=== PATIENT | female | born 1995 | race Asian ===

== ENCOUNTER 2016-10-16 17:57 | Emergency (ER) | payer OTHER ==
[2016-10-16] MEDS ORDERED: NS 1,000 ML IV ONE (20:46)
[2016-10-16] MEDS ORDERED: ACETAMINOPHEN 500 MG TAB PO ONE (20:48)
[2016-10-16 21:10] VITALS: O2SAT 98
--- NOTE | 2016-10-16 21:25 | DX ---
PA and Lateral Chest History: Cough and illness for one month in a 21-year-old female; no previous studies are available f or comparison. Findings: The heart and mediastinal contours are normal. Pulmonary vascularity is normal. There is c entral peribronchial thickening. Linear opacity is seen at the left lung base, pneumonia versus atele ctasis. There is elevation of the right hemidiaphragm. Impression: Findings consistent with airways disease are noted with more focal left basilar opacity, pneumonia versus atelectasis.
[2016-10-16 21:47] LABS: % IMMATURE GRANULYOCYTES 0.4 % (0.0-1.1); ABSOLUTE IMMATURE GRANULOCYTES 0.06 10^3/uL (0.00-0.10); ADD DIFF? NO; ADD MORPH? NO; ADD SCAN? NO; ATYPICAL LYMPHOCYTE FLAG 30 (0-99); FRAGMENT RBC FLAG 0 (0-99); HEMATOCRIT 42.3 % (38.0-47.0); HEMOGLOBIN 13.9 g/dL (12.6-16.3); LEFT SHIFT FLG 0 (0-99); LIPEMIA HEMOLYSIS FLAG 80 (0-99); MEAN CELL HEMOGLOBIN 29.3 pg (27.9-34.1); MEAN CELL HEMOGLOBIN CONCENTR. 32.9 g/dL (32.4-36.7); MEAN CELL VOLUME 89.1 fL (81.5-99.8); PLATELET CLUMPS FLAG 0 (0-99); PLATELET COUNT 262 10^3/uL (150-400); RED BLOOD CELL COUNT 4.75 10^6/uL (4.18-5.33)
[2016-10-16 22:01] LABS: ANION GAP 9 mEq/L (8-16); CALCIUM 8.6 mg/dL (8.5-10.4); CARBON DIOXIDE 23 mEq/l (22-31); CHLORIDE 104 mEq/L (97-110); CREATININE 0.6 mg/dL (0.6-1.0); GLOMERULAR FILTRATION RATE > 60; GLUCOSE 114 mg/dL (70-100); POTASSIUM 4.5 mEq/L (3.5-5.2); SODIUM 136 mEq/L (134-144)
[2016-10-16] MEDS ORDERED: KETOROLAC 30 MG/1 ML SDV IVP ONE (22:04)
[2016-10-16] MEDS ORDERED: BENZONATATE 100 MG CAP PO ONE ×2 (22:05)
[2016-10-16] MEDS ORDERED: KETOROLAC 30 MG/1 ML SDV ONE (22:05)
[2016-10-16] MEDS: NS 1,000 ML IV ONE ×2 (22:10→22:21)
--- NOTE | 2016-10-16 22:12 | EDPHY ---
H & P Time Seen by Provider: 10/16/16 20:45 HPI/ROS: HPI Cough. 21-year-old female by private vehicle. She complains of a cough which she describes as Dry and ongoing sore throat for the last month. She was seen by her primary care physician at [facility] about a week ago. She was prescribed a antibiotic but she did not fill this prescription. She presents the emergency department complaining of continued cough and sore throat made worse by the cough. ROS: Constitutional: No fever, no chills. No weakness. Eyes: No discharge. No changes in vision. ENT: As above. No nasal congestion or rhinorrhea. Respiratory: As above. No shortness of breath. Cardiac: No chest pain, no palpitations. Gastrointestinal: No abdominal pain, no vomiting, no diarrhea. Genitourinary: No hematuria. No dysuria or increased frequency with urination. Musculoskeletal: No back pain. No neck pain. No myalgias or arthralgias. Skin: No rashes. Neurological: No headache. No focal weakness or altered sensation. Past medical history: PTSD, depression, multiple suicide attempts. Social history: Nonsmoker. No alcohol. Here by herself. Physical Exam: General Appearance: Alert, no distress. This patient is responding to questions appropriately and in full sentences. This patient appears well- hydrated and well-nourished. Eyes: Pupils equal and round no pallor or injection. No lid edema, erythema or injection. ENT, Mouth: Mucous membranes are moist. The pharyngeal tissues are unremarkable. No edema or swelling. No asymmetry suggestive of abscess. No erythema or exudates. Respiratory: There are no retractions, lungs are clear to auscultation with good air movement bilaterally. No wheezing. No rhonchi. No tachypnea. Intermittent dry cough. Cardiovascular: Regular rate and rhythm. No murmur. Neurological: Motor sensory function is grossly intact. Cranial nerves are normal. Gait is normal. Skin: Warm and dry, no rashes. Musculoskeletal: Neck is supple and nontender. Extremities are symmetrical. All joints range without pain or impingement. Psychiatric: No agitation. No depression. Database: Rapid strep-negative. Rapid flu-negative. EKG: Imaging: Chest x-ray PA and lateral; the cardiac mediastinal silhouette is unremarkable. No evidence of pneumothorax. Probable left lower lobe infiltrate. No other acute cardiopulmonary disease process noted. Interpreted by me. Procedures: Emergency department course: After my evaluation, an IV was placed. She was placed on a monitor. She was started on IV normal saline with 1-2 L to be given over the next 1-2 hours for dehydration. She was given a g of Tylenol. After review of her renal function she was given 30 mg of IV Toradol for sore throat and 200 mg of Tessalon Perle. 10:15 p.m., chest x-ray indicates left lower lobe infiltrate. I discussed antibiotic treatment with her. She was given 750 mg of oral Levaquin in the emergency department. She does feel comfortable going home. She does not have any significant comorbidities. Plan is to prescribe her Levaquin, 7 day course for treatment of pneumonia. Follow-up and return to emergency department precautions were reviewed with her thoroughly. All of her questions were answered. She was discharged from the emergency department in good condition. Differential Diagnosis: The differential diagnosis on this patient includes but is not limited to bronchitis, influenza, pneumonia, viral versus streptococcal pharyngitis. This represents a partial list of diagnoses considered. These considerations are based on history, physical exam, past history, reassessment and diagnostic testing. Smoking Status: Current every day smoker Constitutional: Initial Vital Signs Temperature (C) 37 C 10/16/16 18:36 Heart Rate 108 H 10/16/16 18:36 Respiratory Rate 18 10/16/16 18:36 Blood Pressure 104/80 10/16/16 18:36 O2 Sat (%) 97 10/16/16 18:36 O2 Delivery Mode Room Air Allergies/Adverse Reactions: Sulfa (Sulfonamide Antibiotics) Allergy (Intermediate, Verified 10/16/16 18:35) Hives Home Medications: Medication Instructions Recorded Benzonatate [Tessalon Pearles] 100 mg PO TID #12 cap 10/16/16 HYDROcodone/HOMATROPINE HYCODA 1 tsp PO Q4-6PRN PRN #120 ml 10/16/16 [Hycodan Syrup (RX)] levOFLOXACIN [levAQUIN (*)] 750 mg PO DAILY #7 tab 10/16/16 Medical Decision Making - Data Points Laboratory Results: Laboratory Results 10/16/16 21:36 10/16/16 21:36 10/16/16 10/16/16 10/16/16 Unknown 21:36 21:00 WBC 14.72 H 10^3/uL (3.80-9.50) RBC 4.75 10^6/uL (4.18-5.33) Hgb 13.9 g/dL (12.6-16.3) Hct 42.3 % (38.0-47.0) MCV 89.1 fL (81.5-99.8) MCH 29.3 pg (27.9-34.1) MCHC 32.9 g/dL (32.4-36.7) RDW 13.0 % (11.5-15.2) Plt Count 262 10^3/uL (150-400) MPV 9.0 fL (8.7-11.7) Neut % (Auto) 68.4 % (39.3-74.2) Lymph % (Auto) 20.9 % (15.0-45.0) [place] % (Auto) 7.7 % (4.5-13.0) Eos % (Auto) 2.1 % (0.6-7.6) Baso % (Auto) 0.5 % (0.3-1.7) Nucleat RBC Rel Count 0.0 % (0.0-0.2) Absolute Neuts (auto) 10.05 H 10^3/uL (1.70-6.50) Absolute Lymphs (auto) 3.08 H 10^3/uL (1.00-3.00) Absolute Monos (auto) 1.14 H 10^3/uL (0.30-0.80) Absolute Eos (auto) 0.31 10^3/uL (0.03-0.40) Absolute Basos (auto) 0.08 10^3/uL (0.02-0.10) Absolute Nucleated RBC 0.00 10^3/uL (0-0.01) Immature Gran % 0.4 % (0.0-1.1) Immature Gran # 0.06 10^3/uL (0.00-0.10) Sodium 136 mEq/L (134-144) Potassium 4.5 mEq/L (3.5-5.2) Chloride 104 mEq/L (97-110) Carbon Dioxide 23 mEq/l (22-31) Anion Gap 9 mEq/L (8-16) BUN 16 mg/dL (7-23) Creatinine 0.6 mg/dL (0.6-1.0) Estimated GFR > 60 Glucose 114 H mg/dL (70-100) Calcium 8.6 mg/dL (8.5-10.4) Influenza Typ A,B (DFA) NEGATIVE FOR FLU (NEGATIVE) Group A Strep Screen NEGATIVE (NEGATIVE) Group A Strep DNA Pending Medications Given: Discontinued Medications Acetaminophen (Tylenol) 1,000 mg PO EDNOW ONE Stop: 10/16/16 20:49 Last Admin: 10/16/16 21:08 Dose: 1,000 mg Sodium Chloride (Ns) 1,000 mls @ 0 mls/hr IV ONCE ONE PRN Reason: Wide Open Stop: 10/16/16 20:47 Last Admin: 10/16/16 21:08 Dose: 1,000 mls Departure - Departure Disposition: Home, Routine, Self-Care Clinical Impression: Pneumonia Condition: Good Instructions: Pneumonia (ED) Additional Instructions: Read and follow provided instructions. Take Hycodan cough syrup as directed only and only at night. Follow-up with your primary care physician in 1-2 days for re-evaluation without fail. Take antibiotic as prescribed through entire course of treatment. It is very important you do this.. Return to the emergency department for worsening cough, high fever, difficulty breathing or other serious concerns. Referrals: NONE *PRIMARY CARE P,. [Primary Care Provider] - As per Instructions Prescriptions: HYDROcodone/HOMATROPINE HYCODA [Hycodan Syrup (RX)] 1 tsp PO Q4-6PRN PRN #120 ml PRN Reason: Cough Benzonatate [Tessalon Pearles] 100 mg PO TID #12 cap levOFLOXACIN [levAQUIN (*)] 750 mg PO DAILY #7 tab
[2016-10-16 22:33] VITALS: BP 115/69; PULSE 97; RESP 16; TEMP 98.2
== END 2016-10-16 22:33 | disposition home or self-care (01) ==
DX: J18.9 Pneumonia, unspecified organism (principal); F17.200 Nicotine dependence, unspecified, uncomplicated
CPT/HCPCS: 96374; J1885

== ENCOUNTER 2017-06-08 14:00 | Inpatient (IN) | payer SELFPAY ==
[2017-06-08 14:22] LABS: COLOR YELLOW; LEUKOCYTE ESTERASE,URINE 3+ (NEGATIVE); NITRITE,URINE POSITIVE (NEGATIVE)
[2017-06-08 14:34] LABS: BACTERIA 3+ /hpf (NONE SEEN); MUCUS TRACE /lpf (NONE-1+); WBC,URINE 50-182 /hpf (0-3)
[2017-06-08] MEDS ORDERED: ONDANSETRON 4 MG/2 ML VIAL IVP ONE (14:56)
[2017-06-08] MEDS ORDERED: NS 1,000 ML IV ONE (14:56)
--- NOTE | 2017-06-08 15:06 | EDPHY ---
H & P Time Seen by Provider: 06/08/17 14:44 HPI/ROS: CHIEF COMPLAINT: Lower back pain HISTORY OF PRESENT ILLNESS: 22-year-old female presents to the emergency department with left greater than right low back pain. Pain began last evening. She states that she did not have any urinary symptoms of dysuria, urgency or frequency with urination. She has had urinary tract infections in the past. Last menstrual period was 2 weeks ago and she denies . She has pain in her left flank and lower abdomen. She has mild pain in the right flank as well. No history of kidney stones. No reported trauma. No fevers or chills. No chest pain or difficulty breathing. No vomiting. No diarrhea. REVIEW OF SYSTEMS: Constitutional: No fever, no chills. Eyes: No double or blurry vision. ENT: No sore throat. Respiratory: No cough, no shortness of breath. Cardiac: No chest pain. Gastrointestinal: No abdominal pain, vomiting or diarrhea. Genitourinary: No dysuria. Musculoskeletal: Low back pain as above. No neck pain. Skin: No rashes. Neurological: No headache. Past Medical/Surgical History: PTSD, depression, multiple suicide attempts Social History: Single and lives in [place] Smoking Status: Current every day smoker Physical Exam: General Appearance: Alert, moderate distress. Afebrile temperature 36.8 degrees. Eyes: Pupils equal and round. Extraocular motions are all intact. ENT: Mouth: Mucous membranes moist. Respiratory: No wheezing, rhonchi, or rales, lungs are clear to auscultation. Cardiovascular: Regular rate and rhythm. Gastrointestinal: Abdomen is soft. Diffusely tender to palpate in lower abdomen both the left and the right side. No rebound, guarding or masses noted. Positive CVA tenderness on the left and the right. Worse on the left than the right. Neurological: Alert and oriented x 3, cranial nerves II through XII grossly intact Skin: Warm and dry, no rashes. Musculoskeletal: Nontender to palpate along the cervical, thoracic or lumbar spine. Neck is supple. Extremities: Full range of motion and no peripheral edema. Psychiatric: Patient is oriented X 3, there is no agitation. Constitutional: Initial Vital Signs Temperature (C) 36.8 C 06/08/17 14:05 Heart Rate 94 06/08/17 14:05 Respiratory Rate 18 06/08/17 14:05 Blood Pressure 118/76 06/08/17 14:05 O2 Sat (%) 98 06/08/17 14:05 O2 Delivery Mode Room Air Allergies/Adverse Reactions: Sulfa (Sulfonamide Antibiotics) Allergy (Intermediate, Verified 06/08/17 14:04) Hives Home Medications: Medication Instructions Recorded NK [No Known Home Meds] 06/08/17 Medical Decision Making - Diagnostics Imaging Results: Imaging Impressions Abdomen/Pelvis CT 06/08/17 16:36 Impression: 1. Minimal asymmetric fullness of the left kidney and upper urinary tract may be due to pyelonephritis. No perinephric fluid collection or obstructing ureteral calculus. 2. Constipation and equivocal for mild adynamic ileus. 3. New benign subcutaneous cystic fluid collection in the region of the right inguinal canal/mons pubis may be a seroma. Recommend correlation with surgical history. 4. Well positioned intrauterine device. Findings discussed with emergency department physician automobile mechanic assistant, Anya Jones PA-C on June 08, 2017 at 1714 hours. Attention: This CT examination is specifically designed to evaluate patients who are clinically suspected of having acute obstructive uropathy. This examination does not use radiographic contrast, and as such, provides only a limited evaluation of the abdomen, pelvis, and retroperitoneum. If there is further clinical suspicion for pathological conditions other than obstructive uropathy, a complete CT evaluation of the abdomen and pelvis utilizing intravenous, oral, and rectal contrast should be considered. Imaging: Discussed imaging studies w/ call center support consultant Radiologist ED Course/Re-evaluation: 22-year-old female presents to the emergency department with flank pain and lower abdominal pain. Urinalysis reveals large amount of white blood cells, red blood cells and 3+ bacteria. Urine cultures pending. Clinically I think this patient has pyelonephritis. I doubt kidney stones. Patient has no history of kidney stones. She has bilateral flank pain although worse on the left than the right. An IV was established and she feels very nauseous. She was given Zofran IV. She was also given 1 g of ceftriaxone IV. Urine cultures pending. [place] [address] %period% creatinine is normal at 0.7. Patient was given 30 mg of IV Toradol as well as IV normal saline. She still continues to have severe especially left flank pain. I was concerned about possible kidney stone. I offered renal ultrasound versus possible CT scan to evaluate this. The patient did not feel that she was going to likely tolerate renal ultrasound because of the probe on her back. She elected CT scan. She is aware of the radiation exposure. CT imaging of the abdomen pelvis without contrast has been ordered and is pending. CT scan of the abdomen and pelvis reveals no evidence of kidney stone. There is minimal hydronephrosis as well as minimal hydroureter right at the renal pelvis. IUD in normal placement. Appendix appears normal. She does have a 2.5 cm fluid collection that looks to be like simple cystic fluid in her right groin. This was reported to me by Dr. Jack Medina. The patient continued to have ongoing pain. She was given 0.5 mg of Dilaudid IV. She has not been eating and drinking well. The patient will be admitted to the hospital to Dr. Elver Rivas for continued IV hydration and IV antibiotics. I did talk with the patient about the cystic fluid collection in her right groin. This is new from an MRI from August of 2014. The patient states that she has had intermittent swelling in her groin for last 1 year or more. She states that it is not typically around her menstrual cycle. She cannot determine if this is around when she ambulates. I recommended close follow-up with OBGYN as an outpatient to have this further evaluated and discussed. Case was discussed with Dr. Suarez, supervising physician, who did not directly evaluate the patient but agrees with treatment and plan. Differential Diagnosis: Including but not limited to urinary tract infection, pyelonephritis, kidney stone, ovarian cyst, ovarian torsion, ectopic , intrauterine - Data Points Laboratory Results: Laboratory Results 06/08/17 15:00 06/08/17 15:00 06/08/17 06/08/17 06/08/17 15:00 15:00 15:00 WBC 17.84 10^3/uL H 10^3/uL (3.80-9.50) RBC 4.98 10^6/uL 10^6/uL (4.18-5.33) Hgb 14.5 g/dL g/dL (12.6-16.3) Hct 43.0 % % (38.0-47.0) MCV 86.3 fL fL (81.5-99.8) MCH 29.1 pg pg (27.9-34.1) MCHC 33.7 g/dL g/dL (32.4-36.7) RDW 14.4 % % (11.5-15.2) Plt Count 231 10^3/uL 10^3/uL (150-400) MPV 9.0 fL fL (8.7-11.7) Neut % (Auto) 87.7 % H % (39.3-74.2) Lymph % (Auto) 6.3 % L % (15.0-45.0) [place] % (Auto) 5.3 % % (4.5-13.0) Eos % (Auto) 0.0 % L % (0.6-7.6) Baso % (Auto) 0.3 % % (0.3-1.7) Nucleat RBC Rel Count 0.0 % % (0.0-0.2) Absolute Neuts (auto) 15.63 10^3/uL H 10^3/uL (1.70-6.50) Absolute Lymphs (auto) 1.13 10^3/uL 10^3/uL (1.00-3.00) Absolute Monos (auto) 0.95 10^3/uL H 10^3/uL (0.30-0.80) Absolute Eos (auto) 0.00 10^3/uL L 10^3/uL (0.03-0.40) Absolute Basos (auto) 0.05 10^3/uL 10^3/uL (0.02-0.10) Absolute Nucleated RBC 0.00 10^3/uL 10^3/uL (0-0.01) Immature Gran % 0.4 % % (0.0-1.1) Immature Gran # 0.08 10^3/uL 10^3/uL (0.00-0.10) Sodium 138 mEq/L mEq/L (134-144) Potassium 4.3 mEq/L mEq/L (3.3-5.0) Chloride 102 mEq/L mEq/L (97-110) Carbon Dioxide 22 mEq/l mEq/l (22-31) Anion Gap 14 mEq/L mEq/L (8-16) BUN 12 mg/dL mg/dL (7-23) Creatinine 0.7 mg/dL mg/dL (0.6-1.0) Estimated GFR > 60 Glucose 98 mg/dL mg/dL (70-100) Calcium 9.2 mg/dL mg/dL (8.5-10.4) Beta HCG, Qual NEGATIVE Urine Color Urine Appearance Urine pH Ur Specific [place] Urine Protein Urine Ketones Urine Blood Urine Nitrate Urine Bilirubin Urine Urobilinogen Ur Leukocyte Esterase Urine RBC Urine WBC Ur Epithelial Cells Urine Bacteria Urine Mucus Urine Glucose 06/08/17 14:10 WBC RBC Hgb Hct MCV MCH MCHC RDW Plt Count MPV Neut % (Auto) Lymph % (Auto) [place] % (Auto) Eos % (Auto) Baso % (Auto) Nucleat RBC Rel Count Absolute Neuts (auto) Absolute Lymphs (auto) Absolute Monos (auto) Absolute Eos (auto) Absolute Basos (auto) Absolute Nucleated RBC Immature Gran % Immature Gran # Sodium Potassium Chloride Carbon Dioxide Anion Gap BUN Creatinine Estimated GFR Glucose Calcium Beta HCG, Qual Urine Color YELLOW Urine Appearance MODERATELY TURBID Urine pH 6.0 (5.0-7.5) Ur Specific [place] 1.012 (1.002-1.030) Urine Protein 1+ H (NEGATIVE) Urine Ketones NEGATIVE (NEGATIVE) Urine Blood 2+ H (NEGATIVE) Urine Nitrate POSITIVE H (NEGATIVE) Urine Bilirubin NEGATIVE (NEGATIVE) Urine Urobilinogen NEGATIVE EU EU (0.2-1.0) Ur Leukocyte Esterase 3+ H (NEGATIVE) Urine RBC 5-10 /hpf H /hpf (0-3) Urine WBC 50-182 /hpf H /hpf (0-3) Ur Epithelial Cells 1+ /lpf /lpf (NONE-1+) Urine Bacteria 3+ /hpf H /hpf (NONE SEEN) Urine Mucus TRACE /lpf /lpf (NONE-1+) Urine Glucose NEGATIVE (NEGATIVE) Medications Given: Discontinued Medications Hydromorphone HCl (Dilaudid) 0.5 mg IVP EDNOW ONE Stop: 06/08/17 16:36 Last Admin: 06/08/17 16:40 Dose: 0.5 mg Ceftriaxone Sodium/Dextrose (Rocephin 1 Gm (Premix)) 50 mls @ 100 mls/hr IV EDNOW ONE PRN Reason: Protocol Stop: 06/08/17 15:26 Last Admin: 06/08/17 15:05 Dose: 50 mls Sodium Chloride (Ns) 1,000 mls @ 0 mls/hr IV EDNOW ONE; Wide Open PRN Reason: Protocol Stop: 06/08/17 14:57 Last Admin: 06/08/17 15:06 Dose: 1,000 mls Ketorolac Tromethamine (Toradol) 30 mg IVP EDNOW ONE Stop: 06/08/17 15:29 Last Admin: 06/08/17 15:54 Dose: 30 mg Ondansetron HCl (Zofran) 4 mg IVP EDNOW ONE Stop: 06/08/17 14:57 Last Admin: 06/08/17 15:06 Dose: 4 mg Departure - Departure Disposition: [facility] In[facility] Acute Clinical Impression: Pyelonephritis Condition: Good
[2017-06-08 15:08] LABS: % IMMATURE GRANULYOCYTES 0.4 % (0.0-1.1); ABSOLUTE IMMATURE GRANULOCYTES 0.08 10^3/uL (0.00-0.10); ADD DIFF? NO; ADD MORPH? NO; ADD SCAN? NO; ATYPICAL LYMPHOCYTE FLAG 10 (0-99); FRAGMENT RBC FLAG 0 (0-99); HEMOGLOBIN 14.5 g/dL (12.6-16.3); LEFT SHIFT FLG 0 (0-99); LIPEMIA HEMOLYSIS FLAG 80 (0-99); MEAN CELL HEMOGLOBIN 29.1 pg (27.9-34.1); MEAN CELL HEMOGLOBIN CONCENTR. 33.7 g/dL (32.4-36.7); MEAN CELL VOLUME 86.3 fL (81.5-99.8); PLATELET CLUMPS FLAG 30 (0-99); PLATELET COUNT 231 10^3/uL (150-400); RED BLOOD CELL COUNT 4.98 10^6/uL (4.18-5.33); RED CELL DISTRIBUTION WIDTH 14.4 % (11.5-15.2)
[2017-06-08 15:25] LABS: ANION GAP 14 mEq/L (8-16); CALCIUM 9.2 mg/dL (8.5-10.4); CARBON DIOXIDE 22 mEq/l (22-31); CHLORIDE 102 mEq/L (97-110); CREATININE 0.7 mg/dL (0.6-1.0); GLOMERULAR FILTRATION RATE > 60; GLUCOSE 98 mg/dL (70-100); POTASSIUM 4.3 mEq/L (3.3-5.0); SODIUM 138 mEq/L (134-144)
[2017-06-08] MEDS ORDERED: KETOROLAC 30 MG/1 ML SDV IVP ONE (15:28)
[2017-06-08] MEDS ORDERED: HYDROmorphONE/DILAUDID 1 MG/ML INJ IVP ONE (16:35)
[2017-06-08] MEDS: HYDROmorphONE/DILAUDID 1 MG/ML INJ IVP PRN (19:53)
[2017-06-08] MEDS ORDERED: LORazepam 2 MG/ML INJ IVP PRN (20:06)
--- NOTE | 2017-06-08 21:16 | GHP ---
[f rep st] HISTORY AND PHYSICAL DATE OF ADMISSION: 06/08/2017 CHIEF COMPLAINT: Left side pain. HISTORY OF PRESENT ILLNESS: The patient is a 22-year-old woman with left greater than right bilatera l flank pain. Two nights ago, she started getting a sharp pain in the left lower back and also in th e front left abdomen. Then Friday, she had waves of pain in this area. Today, "my entire back" st arted having severe pain. Her stomach felt acidy. She started getting shaking chills today. She sl ept poorly last night. She has some vomiting last night. She has had some dry heaves today. She ca me to the emergency room because of pain today, where she was found to have a UTI. She has had no ur inary tract symptoms whatsoever, but does have this bilateral low back pain, worse on the left. She also continues to have some nausea. She has not vomited in the hospital. PAST MEDICAL HISTORY: Significant for mental health hospitalizations in the past, although not recen tly. She has a history of methamphetamine and benzodiazepine abuse, but has not had either of those medications for approximately 1 year now. She has no history of IV drug use. She has had occasional cocaine in the last several weeks. She denies marijuana use. She has "2-3" glasses of wine very ev ening. She smokes 4 cigarettes per day. She is not working at the present time. Living with a room mate. FAMILY HISTORY: Her mother when she was 16 years old. She was born in [place] and has moved ba ck and forth, but currently her father lives in [place], and she has been in [place] for the last few years. REVIEW OF SYSTEMS: CONSTITUTIONAL: Weight is stable. NEUROLOGIC: Denies headache. ENT: No head congestion. RESPIRATORY: Denies shortness of breath or cough. CARDIOVASCULAR: No chest pains or h eart palpitations. GI: Nausea, but no diarrhea or constipation. MUSCULOSKELETAL: Denies joint lavern ns, although she has felt achy all over all day today. PHYSICAL EXAMINATION: GENERAL: She is a well-developed [place] woman who is shivering in bed when I walk in. [place] through our conversation, she received a dose of Dilaudid 0.4 mg IV and not iceably calms down with less shaking, and she does not appear to be in any distress after the Dilaudi d. VITAL SIGNS: Blood pressure 118/76, heart rate 94, oxygen saturation 98% on room air, temperatur e 36.8. She has been here approximately 4 hours and has not had a fever since being here. EYES: Pu pils equal, round, and reactive to light. Conjunctivae are pink. THROAT, MOUTH AND OROPHARYNX: Ministerio ign. NECK: Supple, without adenopathy or thyromegaly. LUNGS: Clear. HEART: Regular, without mur mur. ABDOMEN: Soft and nontender, without masses. BACK: She has tenderness of the paraspinous mus cles in the upper lumbar area bilaterally, worse on the left. She also has CVA tenderness on the lef t, although this is somewhat hard to distinguish between CVA tenderness versus muscle tenderness. Be fore the Dilaudid, she had great difficulty lying flat on her back, but after the Dilaudid, she was a ble to lie supine for my exam. She has no inguinal tenderness. DATABASE: Her WBC is elevated at 17.8, hemoglobin 14, and platelets 231,000. Electrolytes are aisha l. Creatinine is 0.7. Abdominal CT scan without contrast shows minimal left kidney fullness and a b enign right inguinal fluid collection that is characterized as "benign" by the radiologist. IMPRESSION: 1. Pyelonephritis. Her elevated white count, shivering, and severe left greater than right flank pa in point to pyelonephritis. Although she is shivering, we have not actually documented a fever here. Nevertheless, this seems the most likely diagnosis. She received Rocephin in the ER. I will claritza nue that medication. Urine culture is pending. She has 50-180 WBCs in her urine. 2. Back pain. She clearly has a fairly significant element of back muscle tenderness causing some p ain. We discussed relaxation techniques to keep this calmed down. 3. Anxiety. She does have a history of anxiety and benzodiazepine abuse in the past, although has n ot used that med for a year now. If her anxiety is severe, I do not think it would be inappropriate to use a low dose of that med while in the hospital, but given her history, she should probably not g o home on any habituating medications. /[id number]/MODL
[2017-06-08] MEDS: D5W 1/2 NS W/ 20 KCl/L 1,000 ML IV SCH (21:33)
[2017-06-08] MEDS: ACETAMINOPHEN 325 MG TAB PO PRN (23:47)
[2017-06-09] MEDS: HYDROmorphONE/DILAUDID 1 MG/ML INJ IVP PRN ×5 (01:07→19:17)
[2017-06-09] MEDS: D5W 1/2 NS W/ 20 KCl/L 1,000 ML IV SCH ×2 (05:40→21:58)
[2017-06-09] MEDS: ACETAMINOPHEN 325 MG TAB PO PRN ×2 (09:14→20:16)
[2017-06-09] MEDS ORDERED: PROMETHAZINE HCL 25 MG/ML INJ IVP PRN (12:45)
--- NOTE | 2017-06-09 12:46 | HOSPPROG ---
Hospitalist Progress Note Assessment/Plan: DIAGNOSES: -Acute pyelonephritis, cultures pending, no sign of abscess -Acute sepsis with high fever tachycardia high white cell count -ongoing pain and nausea management issues -soft tissue density in the subcutaneous tissue right lower quadrant, question seroma, not likely related to her acute syndrome PLANS: -at this point she clearly will need ongoing inpatient IV antibiotics, IV fluids , antiemetics, and analgesics -Continue current empiric Rocephin awaiting cultures -I have increased her antiemetic doses and added some anti-inflammatory analgesic to her current narcotic medicine -Follow hemodynamics closely; at this moment there does not appear to be any need for any significant increase in resuscitation efforts are monitoring for sepsis but will have low index for doing so -recheck CBC and renal function SUBJECTIVE: ongoing severe bilateral flank pain Significant nausea, difficulty keeping fluids down OBJECTIVE Vitals reviewed: T-max 39 degrees associated with a high pulse at 112, blood pressures have been stable so far Exam: alert oriented Looks quite uncomfortable right now rising on bed with pain and nausea skin warm dry color ok resps not labored lungs clear BSs heart regular abd soft nondistended nontender, bowel sounds present limbs warm, no edema iv site ok laboratory data: Cultures pending I reviewed her images of CT scan of the abdomen and do not see evidence of obstruction/hydronephrosis or abscess Objective: Vital Signs Temp Pulse Resp BP Pulse Ox 36.7 C 79 16 110/59 L 96 06/09/17 12:06 06/09/17 12:06 06/09/17 12:06 06/09/17 12:06 06/09/17 12:06 06/08/17 06/09/17 06/10/17 06:59 06:59 06:59 Intake Total 802 Balance 802 - Time Spent With Patient Time Spent with Patient: greater than 35 minutes Time Spent with Patient: Greater than 35 minutes spent on this patients care, greater than 50% of time spent counseling, educating, and coordinating care regarding the above mentioned plan. ICD10 Worksheet Patient Problems: Problems Problem Status Onset Pyelonephritis Acute Acetaminophen overdose Acute Alcoholic intoxication Acute Depression Acute Polysubstance abuse Acute Post traumatic stress disorder (PTSD) Acute Substance abuse Acute
[2017-06-09] MEDS: ONDANSETRON 4 MG/2 ML VIAL IVP PRN (12:49)
[2017-06-09] MEDS ORDERED: LORazepam 1 MG TAB PO PRN (15:55)
[2017-06-09] MEDS: KETOROLAC 30 MG/1 ML SDV IVP SCH ×2 (16:30→21:57)
[2017-06-09] MEDS ORDERED: KETOROLAC 30 MG/1 ML SDV IVP SCH (18:00)
[2017-06-09] MEDS ORDERED: HYDROmorphONE/DILAUDID 1 MG/ML INJ IVP ONE (22:15)
[2017-06-10] MEDS: HYDROmorphONE/DILAUDID 2 MG/ML INJ IVP PRN ×6 (01:03→23:26)
[2017-06-10] MEDS: KETOROLAC 30 MG/1 ML SDV IVP SCH ×4 (04:38→21:51)
[2017-06-10] MEDS: D5W 1/2 NS W/ 20 KCl/L 1,000 ML IV SCH ×2 (08:28→19:57)
[2017-06-10] MEDS: ONDANSETRON 4 MG/2 ML VIAL IVP PRN ×3 (10:02→18:24)
--- NOTE | 2017-06-10 16:44 | ASMTCMCOM ---
CM Note CM Note Notes: Patient requesting to discharge today but she is still on IV antibiotics and IV fluids. She was advised that it would not be good for her to discharge yet otherwise she could end up right back in the hospital. Still uniknown how soon she might be ready to discharge. Case management will follow. Date Signed: 06/10/2017 04:43 PM Electronically Signed By:SHILPA Palmer
--- NOTE | 2017-06-10 18:17 | HOSPPROG ---
Hospitalist Progress Note Assessment/Plan: DIAGNOSES: -Acute pyelonephritis, cultures pending, no sign of abscess -Acute sepsis with high fever tachycardia high white cell count -ongoing pain and nausea management issues -soft tissue density in the subcutaneous tissue right lower quadrant, question seroma, not likely related to her acute syndrome PLANS: -at this point she clearly will need ongoing inpatient IV antibiotics, IV fluids , antiemetics, and analgesics -Continue current empiric Rocephin awaiting cultures -? home in 1-2 days depending on abx sensitivities and pain management SUBJECTIVE: pain is a bit better today but still needing a lot of narcotic analgesic nausea notably better OBJECTIVE Vitals reviewed:stable vitals so far today Exam: alert oriented Looks more comfortable today than yest skin warm dry color ok resps not labored lungs clear BSs heart regular abd soft nondistended nontender, bowel sounds present limbs warm, no edema iv site ok laboratory data: Cultures pending gram neg rods I reviewed her images of CT scan of the abdomen and do not see evidence of obstruction/hydronephrosis or abscess Objective: Vital Signs Temp Pulse Resp BP Pulse Ox 36.7 C 88 17 128/86 H 97 06/10/17 15:27 06/10/17 15:27 06/10/17 15:27 06/10/17 15:27 06/10/17 15:27 06/09/17 06/10/17 06/11/17 06:59 06:59 06:59 Intake Total 802 3270 Balance 802 3270 ICD10 Worksheet Patient Problems: Problems Problem Status Onset Pyelonephritis Acute Acetaminophen overdose Acute Alcoholic intoxication Acute Depression Acute Polysubstance abuse Acute Post traumatic stress disorder (PTSD) Acute Substance abuse Acute
[2017-06-10] MEDS: NICOTINE POLACRILEX 2 MG GUM B PRN (23:30)
[2017-06-11] MEDS: HYDROmorphONE/DILAUDID 2 MG/ML INJ IVP PRN ×4 (01:57→17:58)
[2017-06-11] MEDS: KETOROLAC 30 MG/1 ML SDV IVP SCH ×4 (04:36→21:22)
[2017-06-11] MEDS: D5W 1/2 NS W/ 20 KCl/L 1,000 ML IV SCH ×2 (04:38→15:06)
[2017-06-11] MEDS ORDERED: CEPACOL LOZENGE PO PRN (09:33)
--- NOTE | 2017-06-11 09:36 | HOSPPROG ---
Hospitalist Progress Note Assessment/Plan: DIAGNOSES: -Acute pyelonephritis, cultures pending, no sign of abscess -Acute sepsis with high fever tachycardia high white cell count, this is now resolved -ongoing pain and nausea management issues -soft tissue density in the subcutaneous tissue right lower quadrant, question seroma, not likely related to her acute syndrome PLANS: -at this point she clearly will need ongoing inpatient IV antibiotics, IV fluids , antiemetics, and analgesics -Continue current Rocephin but will be able to switch to po once nausea is resolve well enough -? home in 1-2 days depending on nausea and pain management -will add pyridium SUBJECTIVE: today still w quite a bit of nausea, needing antiemetic several times per day also no with some sore throat and new burning dysuria OBJECTIVE Vitals reviewed:stable vitals so far today without fever Exam: alert oriented Looks more comfortable today than yest skin warm dry color ok resps not labored lungs clear BSs heart regular abd soft nondistended nontender, bowel sounds present limbs warm, no edema iv site ok laboratory data: Cultures now with 2 different e coli, both ortiz sensitive I have reviewed her images of CT scan of the abdomen and do not see evidence of obstruction/hydronephrosis or abscess Objective: Vital Signs Temp Pulse Resp BP Pulse Ox 36.4 C 71 16 110/71 95 06/11/17 08:55 06/11/17 08:55 06/11/17 08:55 06/11/17 08:55 06/11/17 08:55 06/10/17 06/11/17 06/12/17 06:59 06:59 06:59 Intake Total 5217 5240 Output Total 4 Balance 3567 3019 ICD10 Worksheet Patient Problems: Problems Problem Status Onset Pyelonephritis Acute Acetaminophen overdose Acute Alcoholic intoxication Acute Depression Acute Polysubstance abuse Acute Post traumatic stress disorder (PTSD) Acute Substance abuse Acute
[2017-06-11] MEDS ORDERED: BISACODYL 10 MG SUPP PR PRN (09:58)
[2017-06-11] MEDS ORDERED: POLYETHYLENE GLYCOL 3350 17 GM PKT PO PRN (09:58)
[2017-06-11] MEDS: PHENAZOPYRIDINE HCL 200 MG TAB PO SCH ×3 (10:00→17:57)
[2017-06-11] MEDS: SENNOSIDES/DOCUSATE SODIUM TAB PO SCH ×2 (10:05→21:21)
[2017-06-11] MEDS: ONDANSETRON 4 MG/2 ML VIAL IVP PRN ×2 (10:08→14:40)
--- NOTE | 2017-06-11 16:36 | ASMTCMCOM ---
CM Note CM Note Notes: Pt still on IV ABX and hydration. May be ready for d/c in 1-2 days. Per [employer], pt missed her interview for [employer] [place] and Medicaid application and will follow up after she is discharged from [facility]. Date Signed: 06/11/2017 04:36 PM Electronically Signed By:SHILPA Brokos
[2017-06-11] MEDS: MAGNESIUM HYDROXIDE 30 ML UDCUP PO PRN (21:22)
[2017-06-11] MEDS: ACETAMINOPHEN 325 MG TAB PO PRN (22:18)
[2017-06-12] MEDS: D5W 1/2 NS W/ 20 KCl/L 1,000 ML IV SCH (01:10)
[2017-06-12] MEDS: KETOROLAC 30 MG/1 ML SDV IVP SCH ×4 (03:59→21:26)
[2017-06-12] MEDS: PHENAZOPYRIDINE HCL 200 MG TAB PO SCH ×3 (08:40→18:36)
[2017-06-12] MEDS: SENNOSIDES/DOCUSATE SODIUM TAB PO SCH ×2 (08:40→20:16)
[2017-06-12] MEDS: MAGNESIUM HYDROXIDE 30 ML UDCUP PO PRN (08:40)
[2017-06-12] MEDS: HYDROmorphONE/DILAUDID 2 MG/ML INJ IVP PRN ×2 (08:55)
--- NOTE | 2017-06-12 10:47 | HOSPPROG ---
Hospitalist Progress Note Assessment/Plan: DIAGNOSES: -Acute pyelonephritis, cultures pending, no sign of abscess -Acute sepsis with high fever tachycardia high white cell count, this is now resolved -ongoing pain and nausea management issues -soft tissue density in the subcutaneous tissue right lower quadrant, question seroma, not likely related to her acute syndrome PLANS: -at this point will attempt to change her medicines to oral and see how she tolerates that -Continue current Rocephin but will be able to switch to po once nausea is resolve well enough -home when nausea and pain management can easily be managed with oral medication and she is able to stay hydrated -will add pyridium SUBJECTIVE: Continue with with pain and nausea and using analgesics and antiemetics, although at this time she feels like she may be able to switch to oral of both She did go a longer time overnight without pain medicine last night No chills Still with dysuria OBJECTIVE Vitals reviewed:stable vitals so far today without fever Exam: alert oriented Looks more comfortable today than yest skin warm dry color ok resps not labored lungs clear BSs heart regular abd soft nondistended nontender, bowel sounds present limbs warm, no edema iv site ok laboratory data: Cultures now with 2 different e coli, both ortiz sensitive Objective: Vital Signs Temp Pulse Resp BP Pulse Ox 36.7 C 71 16 110/68 95 06/12/17 08:00 06/12/17 08:00 06/12/17 08:00 06/12/17 08:00 06/12/17 08:00 06/11/17 06/12/17 06/13/17 06:59 06:59 06:59 Intake Total 5224 3459 362 Output Total 4 Balance 4424 3459 250 ICD10 Worksheet Patient Problems: Problems Problem Status Onset Pyelonephritis Acute Acetaminophen overdose Acute Alcoholic intoxication Acute Depression Acute Polysubstance abuse Acute Post traumatic stress disorder (PTSD) Acute Substance abuse Acute
[2017-06-12] MEDS: oxyCODONE IR 5 MG TAB PO PRN ×2 (13:06→18:37)
[2017-06-12] MEDS: ACETAMINOPHEN 325 MG TAB PO PRN (14:45)
[2017-06-12] MEDS: ONDANSETRON 4 MG/2 ML VIAL IVP PRN ×2 (16:00→20:44)
[2017-06-12] MEDS: LACTULOSE 20 GM/30 ML UDCUP PO PRN (18:37)
[2017-06-12] MEDS: ONDANSETRON DISINTEGRATING 4 MG TAB PO PRN (20:16)
[2017-06-12] MEDS: NICOTINE POLACRILEX 2 MG GUM B PRN (21:26)
[2017-06-13] MEDS: ONDANSETRON DISINTEGRATING 4 MG TAB PO PRN (02:41)
[2017-06-13] MEDS: KETOROLAC 30 MG/1 ML SDV IVP SCH ×3 (04:58→18:43)
[2017-06-13] MEDS: PHENAZOPYRIDINE HCL 200 MG TAB PO SCH ×3 (09:13→20:04)
--- NOTE | 2017-06-13 11:04 | HOSPPROG ---
Hospitalist Progress Note Assessment/Plan: DIAGNOSES: -Acute pyelonephritis, cultures pending, no sign of abscess -Acute sepsis with high fever tachycardia high white cell count, this is now resolved -ongoing pain and nausea management issues -soft tissue density in the subcutaneous tissue right lower quadrant, question seroma, not likely related to her acute syndrome PLANS: -she gets IV Rocephin today; will change to oral Levaquin tomorrow -at this point will oral sublingual and P R symptomatic medications -she continues to have trouble with nausea vomiting may need to consider PICC line but really she is getting better and we should be able to move on without IV but will follow tonight -home when nausea and pain management can easily be managed with oral medication and she is able to stay hydrated SUBJECTIVE: Continue with with pain and nausea and using analgesics and antiemetics, and had frequent vomiting during the night. Today she did lose her IV catheter to infiltration and we have been unable so far to get a new IV placed. She is eating food today and so far we are getting by with oral medicines. She did go a longer time overnight without pain medicine last night No chills Still with dysuria OBJECTIVE Vitals reviewed:stable vitals so far today without fever Exam: alert oriented Looks more comfortable today than yest skin warm dry color ok resps not labored lungs clear BSs heart regular abd soft nondistended nontender, bowel sounds present limbs warm, no edema iv site ok laboratory data: Cultures now with 2 different e coli, both ortiz sensitive Objective: Vital Signs Temp Pulse Resp BP Pulse Ox 36.8 C 54 L 16 106/70 94 06/13/17 08:57 06/13/17 08:57 06/13/17 08:57 06/13/17 08:57 06/13/17 08:57 06/12/17 06/13/17 06/14/17 06:59 06:59 06:59 Intake Total 3456 2190 Output Total 600 Balance 3456 1590 ICD10 Worksheet Patient Problems: Problems Problem Status Onset Pyelonephritis Acute Acetaminophen overdose Acute Alcoholic intoxication Acute Depression Acute Polysubstance abuse Acute Post traumatic stress disorder (PTSD) Acute Substance abuse Acute
[2017-06-13] MEDS: SENNOSIDES/DOCUSATE SODIUM TAB PO SCH ×2 (11:11→20:04)
[2017-06-13] MEDS: ONDANSETRON 4 MG/2 ML VIAL IVP SCH ×2 (13:23→18:44)
[2017-06-13] MEDS: oxyCODONE IR 5 MG TAB PO PRN ×3 (14:19→21:54)
[2017-06-13] MEDS: LACTULOSE 20 GM/30 ML UDCUP PO PRN (15:35)
[2017-06-13] MEDS ORDERED: ONDANSETRON DISINTEGRATING 4 MG TAB PO ONE (18:00)
[2017-06-13] MEDS ORDERED: PROMETHAZINE HCL 25 MG SUPPR PR PRN (18:15)
[2017-06-13] MEDS ORDERED: PROMETHAZINE HCL 25 MG TAB PO PRN (18:15)
[2017-06-13] MEDS: ONDANSETRON DISINTEGRATING 4 MG TAB PO SCH (21:54)
[2017-06-14 00:19] VITALS: RESP 15
[2017-06-14] MEDS: ONDANSETRON DISINTEGRATING 4 MG TAB PO SCH ×4 (01:05→13:23)
[2017-06-14] MEDS: ACETAMINOPHEN 325 MG TAB PO PRN (01:05)
[2017-06-14] MEDS: NICOTINE POLACRILEX 2 MG GUM B PRN (01:50)
[2017-06-14 08:02] VITALS: BP 107/69; PULSE 52; TEMP 98.4; O2SAT 91
[2017-06-14] MEDS: PHENAZOPYRIDINE HCL 200 MG TAB PO SCH ×2 (09:16→13:23)
[2017-06-14] MEDS: SENNOSIDES/DOCUSATE SODIUM TAB PO SCH ×2 (09:19→09:43)
--- NOTE | 2017-06-14 10:10 | PDDCSUM ---
Discharge Summary Discharge Summary: DISCHARGE DIAGNOSES: -Acute pyelonephritis, cultures pending, no sign of abscess -Acute sepsis with high fever tachycardia high white cell count, this is now resolved -ongoing pain and nausea management issues -soft tissue density in the subcutaneous tissue right lower quadrant, question seroma, not likely related to her acute syndrome -hx of abuse of methamphetamine and benzodiazepines, tobacco abuse HOSPITAL COURSE: The patient presented iwth typical pyelonephritis, fairly ill but no signs of sepsis. She had severe pain and vomiting. She was admitted and began empiric abx with fluids and symptom management meds. Her urine cultures grew sensitive E coli. Her symptoms were very slow to resolve but US showed no sign of abscess or obstruction or stone. She did eventually progress to being able to hydrate and take meds orally. At this time she is stable for discharge to home , and she will complete oral levaquin at home. Incidentally noted on CT was a small fluid collection suggesting seroma in sub q fat RLQ of abdomen. This is nontender noninflammed. No further assessment was made at this time MEDICATION CHANGES: Levaquin 750 daily 5 more days prn oxycodone # 20 5mg, prn zofran, and pyridium are prescribed she may use tylenol and advil as well FOLLOW UP: we will be helping her arrange f/u w new primary as she is just off Box to medicare she will see maricruz THOMASON for f/u of pyelonephritis and seroma
[2017-06-14] MEDS: oxyCODONE IR 5 MG TAB PO PRN (13:24)
--- NOTE | 2017-06-15 16:19 | ASDISCHSUM ---
Discharge Information Plan Status:Home with No Needs Medically Cleared to Leave: Discharge Date:06/14/2017 03:03 PM CM D/C Disposition:Home, Routine, Self-Care ADT D/C Disposition:Home, Routine, Self-Care Projected Discharge Date:06/12/2017 12:00 AM Transportation at D/C: Discharge Delay Reason: Follow-Up Date:06/12/2017 12:00 AM Discharge Slot: Final Diagnosis:Pyleonephritis Placement Information Patient Contact Information Contact Name:DEMARCUS Relationship:Father Address: Work Phone: City: [facility] [place] Phone: State/Zip Code: Email: Financial Information Financial Class:Self-Pay Primary Plan Desc:SELF PAY Primary Plan Number: Secondary Plan Desc: Secondary Plan Number: Assessment Information [facility] CM Progress Note CM Note CM Note Notes: Patient requesting to discharge today but she is still on IV antibiotics and IV fluids. She was advised that it would not be good for her to discharge yet otherwise she could end up right back in the hospital. Still uniknown how soon she might be ready to discharge. Case management will follow. Date Signed: 06/10/2017 04:43 PM Electronically Signed By:SHILPA Palmer [facility] CM Progress Note CM Note CM Note Notes: Pt still on IV ABX and hydration. May be ready for d/c in 1-2 days. Per [employer], pt missed her interview for [employer] [place] and Medicaid application and will follow up after she is discharged from [facility]. Date Signed: 06/11/2017 04:36 PM Electronically Signed By:SHILPA Brooks Intervention Information
== END 2017-06-14 15:03 | disposition home or self-care (01) | DRG 690 ==
LOC: F1N 18:19 → OBSVTOIN 20:09
PROVIDERS: ADMIT Internal Medicine; ATTEND Internal Medicine
DX: N10 Acute pyelonephritis (principal); B96.20 Unspecified Escherichia coli [E. coli] as the cause of diseases classified elsewhere; R93.5 Abnormal findings on diagnostic imaging of other abdominal regions, including retroperitoneum; F17.210 Nicotine dependence, cigarettes, uncomplicated; F32.9 Major depressive disorder, single episode, unspecified; Z91.5 Personal history of self-harm; F43.12 Post-traumatic stress disorder, chronic
CPT/HCPCS: 96365; J0696; J1170; J1885; J2405; J2550

== ENCOUNTER 2017-08-19 13:33 | Emergency (ER) | payer MEDICAID ==
[2017-08-19 13:45] VITALS: BP 102/73; PULSE 79; RESP 17; TEMP 98.6; O2SAT 97
--- NOTE | 2017-08-19 13:55 | EDPHY ---
H & P Stated Complaint: CRUSHED L THUMB FRIDAY/ SUBUNGUAL HEMATOMA DRAINED Time Seen by Provider: 08/19/17 13:52 HPI/ROS: Chief Complaint: Subungual hematoma left thumb HPI: The patient presents to the ED with a subungual hematoma on her left thumb. The patient slammed her finger in a car door 3 days ago. She was seen at a outside hospital and negative x-rays. She was placed in a splint at that point time. She presents to the ED today complaining of pain secondary to a subungual hematoma which has developed. REVIEW OF SYSTEMS: Neuro: no headache, numbness, weakness Musculoskeletal: as above Skin: no abrasion or lacerations Source: Patient Exam Limitations: No limitations - Personal History LMP (Females 10-55): 8-14 Days Ago Current Tetanus/Diphtheria Vaccine: Yes Tetanus Vaccine Date: 2 years ago - Medical/Surgical History Hx Asthma: No Hx Chronic Respiratory Disease: No Hx Diabetes: No Hx Cardiac Disease: No Hx Renal Disease: No Hx Cirrhosis: No Hx Alcoholism: Yes Hx HIV/AIDS: No Hx Splenectomy or Spleen Trauma: No Other PMH: ptsd, depression, multiple suicide attempts - Social History Smoking Status: Current every day smoker - Physical Exam Exam: General: No acute distress Left hand: Subungual hematoma involving the left 1st digit Musculoskeletal: Tenderness to palpation throughout the left 1st digit Constitutional: Initial Vital Signs Temperature (C) 37 C 08/19/17 13:43 Heart Rate 79 08/19/17 13:43 Respiratory Rate 17 08/19/17 13:43 Blood Pressure 102/73 08/19/17 13:43 O2 Sat (%) 97 08/19/17 13:43 O2 Delivery Mode Room Air Allergies/Adverse Reactions: Sulfa (Sulfonamide Antibiotics) Allergy (Intermediate, Verified 08/19/17 13:43) Hives Home Medications: Medication Instructions Recorded NK [No Known Home Meds] 08/19/17 Medical Decision Making Procedures: Procedure: Drainage of subungual hematoma. Indication: Symptomatic subungual hematoma. Description: Procedure was performed by myself using electrocautery, a 2 mm probe was used to burn a hole in the central portion of the nail. The hematoma was evacuated. Departure - Departure Disposition: Home, Routine, Self-Care Clinical Impression: Subungual hematoma of fingernail Condition: Good Instructions: Subungual Hematoma (ED) Additional Instructions: 1. Tylenol and ibuprofen as needed for pain. 2. Return to the ED for a current hematoma or other concerns. Referrals: NONE *PRIMARY CARE P,. [Primary Care Provider] - As per Instructions
== END 2017-08-19 14:05 | disposition home or self-care (01) ==
PROC: 0H9QXZZ Drainage of Finger Nail, External Approach (ICD-10-PCS; principal; 2017-08-19)
DX: S60.112A Contusion of left thumb with damage to nail, initial encounter (principal); F17.200 Nicotine dependence, unspecified, uncomplicated; W23.0XXA Caught, crushed, jammed, or pinched between moving objects, initial encounter; Y92.810 Car as the place of occurrence of the external cause; Y99.8 Other external cause status

== ENCOUNTER 2017-11-13 13:30 | Emergency (ER) | payer MEDICAID ==
--- NOTE | 2017-11-13 13:58 | EDPHY ---
H & P Stated Complaint: etoh and drank 1/2 bottle(maybe 2.5mg) oxycodone to numb out - Personal History LMP (Females 10-55): 22-28 Days Ago Current Tetanus/Diphtheria Vaccine: Yes Tetanus Vaccine Date: 2 years ago - Medical/Surgical History Hx Asthma: No Hx Chronic Respiratory Disease: No Hx Diabetes: No Hx Cardiac Disease: No Hx Renal Disease: No Hx Cirrhosis: No Hx Alcoholism: Yes Hx HIV/AIDS: No Hx Splenectomy or Spleen Trauma: No Other PMH: ptsd, depression, multiple suicide attempts - Social History Smoking Status: Current every day smoker Time Seen by Provider: 11/13/17 13:46 HPI/ROS: CHIEF COMPLAINT: "I need to stop doing this "" HISTORY OF PRESENT ILLNESS: 22-year-old female history of depression with hospitalizations at multiple psychiatric institutions states that she drinking heavy amounts of alcohol last evening, walked to the emergency department while drinking a bottle of oxycodone, requesting mental health evaluation. When asked whether this was a suicide attempt she says "I can't say that it wasn't". His no complaints of pain or discomfort. No hallucination. No cutting behavior. She is currently not seeing a therapist. REVIEW OF SYSTEMS: A ten point review of systems was performed and is negative with the exception of the items mentioned in the HPI PAST MEDICAL & SURGICAL HISTORY: Depression with history of hospitalization SOCIAL HISTORY:Positive for alcohol use PHYSICAL EXAM (Prior to examination, patient consented to physical exam, hands were washed and my usual and customary physical exam procedures followed) 1) GENERAL: Somnolent , oriented. Depressed, flat affect, tearful. 2) HEAD: Normocephalic, atraumatic 3) HEENT: Pupils equal, round, reactive to light bilaterally. Sclera anicteric. 4) NECK: Full range of motion, no meningeal signs. 5) LUNGS: Clear auscultation bilaterally, no wheezes, no rhonchi, no retractions. 6) HEART: Regular rate and rhythm, no murmur, no heave, no gallop. 7) ABDOMEN: [No guarding, no rebound, no focal tenderness, 8) MUSCULOSKELETAL: No visible trauma No peripheral edema or discoloration. 9) BACK: No visual or palpable abnormality. 10) SKIN: No rash, no petechiae. 11) Psychiatric: Patient is oriented X 3, tearful depressed flat affect DIFFERENTIAL DIAGNOSIS: In no particular include but limited to Tylenol toxicity, hepatic failure, suicidal ideation, suicide attempt, depression (Peter Fernandez) Constitutional: Initial Vital Signs Temperature (C) 36.7 C 11/13/17 13:41 Heart Rate 112 H 11/13/17 13:41 Respiratory Rate 16 11/13/17 13:41 Blood Pressure 115/94 H 11/13/17 13:41 O2 Sat (%) 94 11/13/17 13:41 O2 Delivery Mode Room Air O2 (L/minute) 2 Allergies/Adverse Reactions: Sulfa (Sulfonamide Antibiotics) Allergy (Intermediate, Verified 11/13/17 13:40) Hives Home Medications: Medication Instructions Recorded NK [No Known Home Meds] 08/19/17 Medical Decision Making ED Course/Re-evaluation: 1:54 p.m.: Patient drank 1/2 bottle of oxycodone, finished consuming this at approximately 1:30 p.m. today while waiting in the emergency department waiting room. This patient has a long standing history of depression. I am concerned about this patient's safety to herself. Plan will be diagnostic studies, IV hydration, repeat acetaminophen level at 5:30 p.m. In consultation with Dr. Soheila Miller an M1 hold was placed on this patient. 5:00 p.m. care of the patient turned over to Dr. Kelvin Koenig. Plan will be repeat Tylenol level at 5:30 p.m. which will be 4 hr post ingestion. If this is negative I think the patient can be evaluated mental health dish carrier (Peter Fernandez Aiyana) 2300 care assumed by me from Dr. Koenig pending mental health evaluation. 0300 patient has been evaluated. Patient is not safe to go home. They will for placement. [address] Bryant pending placed. No issues during my care this patient overnight. (Graeme Livingston) 0700: The patient is signed out to me by Dr. Livingston. The patient is awaiting evaluation and placement The patient was stable during her stay. 1500: The patient is signed out to Dr. Scott at change of shift. Patient is awaiting placement. (Joan Bryant) Other Provider: The patient had a medical screening evaluation performed. There does not appear to be an acute emergent medical or surgical condition which would preclude psychiatric evaluation at this time. Mental health evaluation is requested at 1830, patient personally evaluated at that time is alert and conversant. Signed out to Miki at 2200 with psych evaluation pending. I am the secondary supervising physician. (Kelvin Koenig) - Data Points Laboratory Results: Laboratory Results 11/13/17 14:55 11/13/17 14:55 Medications Given: Discontinued Medications Acetaminophen (Tylenol) 650 mg PO EDNOW ONE Stop: 11/13/17 23:07 Last Admin: 11/13/17 23:11 Dose: 650 mg Sodium Chloride (Ns) 1,000 mls @ 0 mls/hr IV ONCE ONE PRN Reason: Wide Open Stop: 11/13/17 14:09 Last Admin: 11/13/17 15:30 Dose: 1,000 mls Ondansetron HCl (Zofran) 4 mg IVP EDNOW ONE Stop: 11/13/17 17:18 Last Admin: 11/13/17 17:18 Dose: 4 mg Ondansetron HCl (Zofran Odt) 4 mg PO EDNOW ONE Stop: 11/13/17 19:01 Last Admin: 11/13/17 19:01 Dose: 4 mg Departure - Departure Disposition: Other Psych, Not [place] Clinical Impression: Severe major depression Condition: Good Referrals: NONE *PRIMARY CARE P,. [Primary Care Provider] - As per Instructions
[2017-11-13] MEDS ORDERED: NS 1,000 ML IV ONE (14:08)
[2017-11-13 15:07] LABS: PLATELET COUNT 258 10^3/uL (150-400)
[2017-11-13] MEDS ORDERED: ONDANSETRON 4 MG/2 ML VIAL ONE (15:17)
--- NOTE | 2017-11-13 15:18 | CPEKG ---
Heart Rate: 73 RR Interval: 822 P-R Interval: 148 QRSD Interval: 78 QT Interval: 396 QTC Interval: 437 P [place]: 47 QRS [place]: 51 T Wave [place]: 40 EKG Severity - NORMAL ECG - EKG Impression: SINUS RHYTHM Electronically Signed By: Kelvni Koenig 13-Nov-2017 17:11:46
[2017-11-13] MEDS ORDERED: ONDANSETRON 4 MG/2 ML VIAL IVP ONE (17:17)
[2017-11-13] MEDS ORDERED: ONDANSETRON DISINTEGRATING 4 MG TAB ONE (19:00)
[2017-11-13] MEDS ORDERED: ONDANSETRON DISINTEGRATING 4 MG TAB PO ONE (19:00)
[2017-11-13] MEDS ORDERED: ACETAMINOPHEN 325 MG TAB PO ONE (23:06)
[2017-11-13] MEDS ORDERED: ACETAMINOPHEN 325 MG TAB ONE (23:06)
[2017-11-14 13:40] VITALS: BP 118/71; PULSE 70; TEMP 98.1; O2SAT 97
[2017-11-14 14:59] VITALS: RESP 28
== END 2017-11-14 14:59 ==
DX: F32.2 Major depressive disorder, single episode, severe without psychotic features (principal); F17.200 Nicotine dependence, unspecified, uncomplicated; E86.9 Volume depletion, unspecified
CPT/HCPCS: 80305; 96374; G0480; J2405